=== PATIENT | male | born 1990 | race Caucasian/White ===

== ENCOUNTER 2023-06-09 15:28 | Emergency (ER) | payer MEDICAID ==
[~2023-06-09] VITALS: Ht 172.7 cm; Wt 72.6 kg
[2023-06-09] MEDS ORDERED: CYCL5TAB PO (17:17)
[2023-06-09] MEDS ORDERED: METH4TAB3 PO (17:17)
[2023-06-09] MEDS ORDERED: HYDR-4303 PO (17:17)
[2023-06-09] MEDS ORDERED: LIDO30AD10 TP (17:17)
[2023-06-09] MEDS ORDERED: IBUP-1955 PO (17:17)
[2023-06-09] MEDS ORDERED: KETOROLAC TROMETHAMINE 15 MG/ML VIAL ONE (17:29)
[2023-06-09] MEDS ORDERED: HYDROCODONE/APAP 5/325MG TABLET ONE (17:29)
[2023-06-09] MEDS: KETOROLAC TROMETHAMINE 15 MG/ML VIAL IM ONE (17:36)
[2023-06-09] MEDS: HYDROCODONE/APAP 5/325MG TABLET PO ONE (17:36)
[2023-06-09 17:40] VITALS: BP 120/67; TEMP 208.8; O2SAT 98
== END 2023-06-09 17:41 | disposition home or self-care (01) ==
LOC: ER 15:52
DX: M54.42 Lumbago with sciatica, left side (principal)
CPT/HCPCS: 99283; 96372; J1885